=== PATIENT | female | born 1935 | race Caucasian/White ===

== ENCOUNTER 2018-06-07 21:41 | Emergency (ER) | payer OTHER ==
[2018-06-07] MEDS: SOD CHLORIDE 0.9% 500 ML IV (22:02)
[2018-06-07] MEDS: METHYLPREDNISOLONE 125 MG INJ IV (22:03)
[2018-06-07] MEDS: DIPHENHYDRAMINE 50 MG INJ IV (22:03)
[2018-06-07 22:29] LABS: ABNORMAL IP MESSAGE 1; HEMATOCRIT 42.1 % (37.0-47.0); HEMOGLOBIN 14.3 g/dl (12.0-16.0); MEAN CORPUSCULAR VOLUME 88.3 fl (82.0-101.0); MEAN PLATELET VOLUME 10.4 fl (7.4-10.4); PLATELET COUNT 381 10^3/UL (140-415); RED BLOOD COUNT 4.77 10^6/ul (4.20-5.40); RED CELL DISTRIBUTION WIDTH 14.1 % (11.5-14.5)
[2018-06-07 22:41] LABS: POSITIVE DIFF @See below
[2018-06-07 22:42] LABS: ADD MAN DIFF? YES; PATH REVIEW? YES
[2018-06-07 22:47] LABS: INR 1.48; PROTIME 18.2 Sec (11.9-14.9); PT RATIO 1.4
[2018-06-07 22:48] LABS: PARTIAL THROMBOPLASTIN TIME 28.8 Sec (25.0-35.0)
[2018-06-07 22:53] LABS: ANION GAP 17 (8-16); BLOOD UREA NITROGEN 21 mg/dl (7-20); CARBON DIOXIDE 19 mmol/L (21-31); CHLORIDE 98 mmol/L (97-110); CREATININE 1.32 mg/dl (0.44-1.00); GLUCOSE 165 mg/dl (70-220); POTASSIUM 4.4 mmol/L (3.5-5.1); SODIUM 130 mmol/L (135-144)
[2018-06-07 23:05] LABS: TROPONIN-I 0.021 ng/ml (0.000-0.120)
[2018-06-07 23:24] LABS: ANISOCYTOSIS 1+ (0-0); BAND NEUTROPHILS #M 5.4 10^3/ul (0.0-0.6); BAND NEUTROPHILS % (M) 14 % (0-4); BURR CELLS 3+ (0-0); EOSINOPHILS % (M) 10 % (0-7); GIANT THROMBO% (M) 1 % (0-0); LYMPHOCYTES #M 2.3 10^3/ul (0.8-2.9); LYMPHOCYTES % (M) 6 % (15-51); MONOCYTE #M 1.9 10^3/ul (0.3-0.9); MONOCYTES % (M) 5 % (0-11); MYELOCYTES #M 1.5 10^3/ul (0.0-0.0); MYELOCYTES % (M) 4 % (0-0); PLATELET ESTIMATE NORMAL; POIKILOCYTOSIS 3+ (0-0); PROMYELOCYTES #M 0.3 10^3/ul (0-0); PROMYELOCYTES % (M) 1 % (0-0); REACTIVE LYMPHOCYTES #M 0.3 10^3/ul (0.0-0.0); REACTIVE LYMPHOCYTES% (M) 1 % (0-0); SEG NEUT #M 25.1 10^3/ul (1.6-7.5); SEGMENTED NEUTROPHILS (M) % 59 % (39-77); SMUDGE%M 18 % (0-0); TEAR DROP CELLS 1+ (0-0)
[2018-06-07] MEDS: SODIUM CHLORIDE 0.9% 1L BAG IV* (23:34)
[2018-06-07] MEDS: CEFEPIME 2GM/50 ML (PMX) 50 ML IVPB (23:34)
[2018-06-08 00:16] LABS: LACTIC ACID 1.4 mmol/L (0.5-2.0)
[2018-06-08] MEDS: DIPHENHYDRAMINE 50 MG INJ IV (00:56)
[2018-06-08] MEDS: VANCOMYCIN 1 GM (PMX) 250 ML IVPB (01:02)
[2018-06-08] MEDS: ALBUTEROL 0.083% (NEB) 2.5 MG/3 ML AMP NEB (01:23)
[2018-06-08] MEDS: IPRATROPIUM (NEB) 0.5 MG/2.5 ML AMP NEB (01:23)
[2018-06-08 01:32] LABS: LACTIC ACID 1.7 mmol/L (0.5-2.0)
[2018-06-08 05:31] LABS: LACTIC ACID 1.5 mmol/L (0.5-2.0)
== END 2018-06-08 04:20 | disposition short-term general hospital (02) ==
LOC: E/R 21:41
DX: J18.9 Pneumonia, unspecified organism (principal); R21 Rash and other nonspecific skin eruption; R51 Headache; R06.02 Shortness of breath; Z79.82 Long term (current) use of aspirin
CPT/HCPCS: 70450; 71045; 80048; 83605; 84484; 85025; 85610; 85730; 87040; 93005; 94664; 96361; 96365; 96375; 96376; 99285-25